=== PATIENT | male | born 1950 | race Caucasian/White ===

== ENCOUNTER 2016-07-02 09:31 | Day surgery (SDC) | payer OTHER ==
[2016-07-02] MEDS ORDERED: TETRACAINE 0.5% OPHTH 1 DOSE AFFEYE ONE ×4 (09:40→14:27)
[2016-07-02] MEDS ORDERED: VIGAMOX 0.5% OPHTH 1 DOSE AFFEYE ONE ×6 (09:45→14:53)
[2016-07-02] MEDS ORDERED: NS 500 ML IV 500 ML IV ONE (09:56)
[2016-07-02] MEDS ORDERED: PROLENSA OPHTH 1 DOSE AFFEYE ONE (10:00)
[2016-07-02] MEDS ORDERED: ALPHAGAN-P OPHTH 1 DOSE AFFEYE ONE (10:04)
[2016-07-02] MEDS ORDERED: CYCLOGYL 1% OPHTH 1 DOSE OP ONE ×6 (10:08→10:23)
[2016-07-02] MEDS ORDERED: AK-DILATE 2.5% OPHTH 1 DOSE OP ONE ×6 (10:09→10:24)
[2016-07-02] MEDS ORDERED: MYDRIACIL OPHTH 1 DOSE AFFEYE ONE ×6 (10:10→10:25)
[2016-07-02] MEDS ORDERED: VERSED ONE (10:28)
[2016-07-02] MEDS ORDERED: BETADINE OPHTH SOLN 5% EACHEYE ONE (14:08)
[2016-07-02] MEDS ORDERED: XYLOCAINE-MPF 1% IJ ONE ×2 (14:13→14:27)
[2016-07-02] MEDS ORDERED: DUOVISC IO ONE ×2 (14:13→14:27)
[2016-07-02] MEDS ORDERED: ADRENALINE CHL INJ IJ ONE ×2 (14:13→14:27)
[2016-07-02] MEDS ORDERED: BSS OPHTH (PLAIN) 500 ML with VANCOMYCIN HCL 500 MG VIAL 25 MG, ADRENALINE CHL INJ 1 MG IR ONE ×6 (14:14)
[2016-07-02] MEDS ORDERED: VISCOAT 0.5 ML IO ONE (14:30)
[2016-07-02 15:16] VITALS: BP 126/72
== END 2016-07-02 15:18 | disposition home or self-care (01) ==
LOC: SURG1 09:31
PROVIDERS: ATTEND Ophthalmology
PROC: 08RK3JZ Replacement of Left Lens with Synthetic Substitute, Percutaneous Approach (ICD-10-PCS; principal; 2016-07-02 18:00)
PROC: 08DK3ZZ Extraction of Left Lens, Percutaneous Approach (ICD-10-PCS; principal; 2016-07-02 18:00)
DX: H25.12 Age-related nuclear cataract, left eye (principal); H25.012 Cortical age-related cataract, left eye
CPT/HCPCS: A4217; J0170; J2250; J3370

== ENCOUNTER 2016-07-23 07:10 | Day surgery (SDC) | payer OTHER ==
[2016-07-23] MEDS ORDERED: NS 500 ML IV 500 ML IV ONE (07:28)
[2016-07-23] MEDS ORDERED: DUREZOL OPHTH 1 DOSE AFFEYE ONE (07:45)
[2016-07-23] MEDS ORDERED: TETRACAINE 0.5% OPHTH 1 DOSE AFFEYE ONE ×3 (07:46→09:15)
[2016-07-23] MEDS ORDERED: VIGAMOX 0.5% OPHTH 1 DOSE AFFEYE ONE ×5 (07:47→10:05)
[2016-07-23] MEDS ORDERED: PROLENSA OPHTH 1 DOSE AFFEYE ONE (07:58)
[2016-07-23] MEDS ORDERED: ALPHAGAN-P OPHTH 1 DOSE AFFEYE ONE (07:59)
[2016-07-23] MEDS ORDERED: CYCLOGYL 1% OPHTH 1 DOSE OP ONE ×4 (08:00→08:03)
[2016-07-23] MEDS ORDERED: AK-DILATE 2.5% OPHTH 1 DOSE OP ONE ×4 (08:00→08:03)
[2016-07-23] MEDS ORDERED: MYDRIACIL OPHTH 1 DOSE AFFEYE ONE ×4 (08:00→08:03)
[2016-07-23] MEDS ORDERED: AK-DILATE 10% OPHTH 1 DOSE AFFEYE ONE ×2 (08:45→09:15)
[2016-07-23] MEDS ORDERED: XYLOCAINE-MPF 1% IJ ONE ×2 (08:50→09:43)
[2016-07-23] MEDS ORDERED: ADRENALINE CHL INJ IJ ONE ×2 (08:50→09:43)
[2016-07-23] MEDS ORDERED: DUOVISC IO ONE ×2 (08:51→09:43)
[2016-07-23] MEDS ORDERED: BETADINE OPHTH SOLN 5% EACHEYE ONE ×2 (08:51→09:15)
[2016-07-23] MEDS ORDERED: DIPRIVAN VIAL ONE (09:35)
[2016-07-23] MEDS ORDERED: BSS OPHTH (PLAIN) 500 ML with VANCOMYCIN HCL 500 MG VIAL 25 MG, ADRENALINE CHL INJ 1 MG IR ONE ×3 (09:43)
[2016-07-23] MEDS ORDERED: VISCOAT 0.5 ML IO ONE (09:43)
[2016-07-23 11:27] VITALS: BP 138/74
== END 2016-07-23 10:30 | disposition home or self-care (01) ==
LOC: SURG1 07:10
PROVIDERS: ATTEND Ophthalmology
PROC: 08RJ3JZ Replacement of Right Lens with Synthetic Substitute, Percutaneous Approach (ICD-10-PCS; principal; 2016-07-23 07:30)
PROC: 08DJ3ZZ Extraction of Right Lens, Percutaneous Approach (ICD-10-PCS; principal; 2016-07-23 07:30)
DX: H25.11 Age-related nuclear cataract, right eye (principal); H25.011 Cortical age-related cataract, right eye
CPT/HCPCS: A4217; J0170; J3370; J3490

== ENCOUNTER 2017-01-31 11:46 | Emergency (ER) | payer OTHER ==
[2017-01-31 11:53] VITALS: BP 159/85; BMI 25.0
[2017-01-31] MEDS ORDERED: XYLOCAINE 1 % (PLAIN) ONE (12:31)
[2017-01-31] MEDS ORDERED: XYLOCAINE 1 % (PLAIN) IJ PRN (12:45)
--- NOTE | 2017-01-31 12:45 | DR.GENAD ---
HPI - PCP Primary Care Physician: nfd - Complaint/Symptoms Chief Complaint Doctors Comments: He presented with a cyst on his left elbow. THis has been present for the preceeding 1 month. He denies associated trauma. He states he was trying to doctor this at [facility] but it has gotten painful lately. He denies fever. Chief Complaint:: Patient c/o cyst on left elbow. Patient is unsure when cyst appeared. Patient stated It has my whole arm hurting and its hot to touch - Nurses notes reviewed Nurses Notes Review: Yes - Source History Provided: Patient - Mode of Arrival Mode of Arrival: Ambulatory - Timing Onset of Chief Complaint: 12/12/16 - Location Location: Lt. elbow - Modifying Factors Worsens:: nothing Improves:: nothing PMH - PMH Past Medical History: No Past Surgical History: Yes Past Surgical History Comment: cataract - Family History History of Family Medical Conditions: No - Social History Does patient currently use any type of tobacco product: Yes Have you used tobacco products in the last 12 months: Yes Type of Tobacco Use: Cigarettes Does any household member use tobacco: No Alcohol Use: DAILY Do you use any recreational Drugs:: No Lives Where: Home - infectious screening In the last 2 months have you had wt loss of >10#?: NO Have you had fever, night sweats or hemotysis?: No Have you traveled outside the country in the last 6 months?: No Isolation: Standard ROS - Review of Systems Constitutional: No Symptoms Reported Eyes: No Symptoms Reported ENTM: No Symptoms Reported Respiratoy: No Symptoms Reported Cardiovascular: No Symptoms Reported Gastrointestinal/Abdominal: No Symptoms Reported Genitourinary: No Symptoms Reported Neurological: No Symptoms Reported Musculoskeletal: Elbow (cyst on the left) Integumentary: No Symptoms Reported Hematologic/Lymphatic: No Symptoms Reported Endocrine: No Symptoms Reported Psychiatric: No Symptoms Reported All Other Systems: Reviewed and Negative PE - Vital Signs Vitals: Temperature 99.5 F Pulse Rate 86 Respiratory Rate 19 Blood Pressure 159/85 O2 Sat by Pulse Oximetry 95 - General Limitations: No Limitations General Appearance: Alert, In No Apparent Distress - Head Head Exam: Normal Inspection - Eyes Eye exam: Normal Appearance, PERRL, EOMI - ENT ENT Exam: Normal Exam - Neck Neck Exam: Normal Inspection, Full ROM, Trachea Midline - Chest Chest Inspection: Normal Inspection, Symmetric Chest Wall Rise - Respiratory Respiratory Exam: Normal Lung Sounds Bilat - Cardiovascular Cardiovascular Exam: Regular Rate, Normal Rhythm - Abdominal Exam Abdominal Exam: Normal Inspection, Normal Bowel Sounds, Soft - Extremities Extremities Exam: Normal Inspection, Full ROM - Back Back Exam: Normal Inspection, Full ROM - Neurologic Neurological Exam: Alert, Oriented X3, CN II-XII Intact - Psychiatric Psychiatric Exam: Normal Affect, Normal Mood - Skin Skin Exam: Warm, Dry, Intact, Normal Color Procedures - Incision and Drainage Site: Lt. elbow Blade Size: 16 gauge needle I & D Procedure: betadine prep (About 10 ml of sero-sanguous fluid was aspirated from the lt. elbow.), sterile dressing applied - Diagnosis Discharge Problem: Other bursal cyst, left elbow - Discharge Plan Disposition: HOME, SELF-CARE Condition: Stable - Follow ups/Referrals Follow ups/Referrals: N[facility],None [Primary Care Provider] - 3 days - Instructions
== END 2017-01-31 12:58 | disposition home or self-care (01) ==
LOC: ER 12:10
PROC: 0X9F0ZX Drainage of Left Lower Arm, Open Approach, Diagnostic (ICD-10-PCS; principal; 2017-01-31)
DX: M71.322 Other bursal cyst, left elbow (principal)
CPT/HCPCS: 87070; 87205; 99282; J2001